=== PATIENT | male | born 1975 | race Caucasian/White ===

== ENCOUNTER 2016-07-03 11:32 | Day surgery (SDC) | payer BC ==
[2016-06-26 08:33] LABS: BASOPHILS 0.4 %; BASOPHILS ABSOLUTE 0.03 10/3/uL (0.0-0.16); EOSINOPHILS 3.5 %; EOSINOPHILS ABSOLUTE 0.24 10/3/uL (0.0-0.53); HEMATOCRIT 46.3 % (40.0-51.0); HEMOGLOBIN 15.6 g/dL (13.6-17.8); IMMATURE GRANULOCYTES 0.1 %; IMMATURE GRANULOCYTES ABSOLUTE 0.01 10/3/uL (0.0-0.11); LYMPHOCYTES 20.3 %; LYMPHOCYTES ABSOLUTE 1.38 10/3/uL (0.67-4.30); MEAN CORPUS HGB CONC 33.7 g/dL (32.0-36.0); MEAN CORPUSCULAR HEMOGLOB 31.3 pg (26.0-34.0); MEAN CORPUSCULAR VOLUME 92.8 fL (80-100); MEAN PLATELET VOLUME 9.9 fL (9.2-13.0); MONOCYTES ABSOLUTE 0.41 10/3/uL (0.21-1.20); NEUTROPHILS 69.7 %; NEUTROPHILS ABSOLUTE 4.74 10/3/uL (2.02-8.40); PLATELET COUNT 206 10/3/uL (150-400); RBC DISTRIBUTION WIDTH 12.5 % (12.0-16.0); RED CELL COUNT 4.99 10/6/uL (4.7-6.1); WHITE BLOOD CELLS 6.8 10/3/uL (4.5-10.5)
[2016-06-26 08:34] LABS: MANUAL DIFF NO %
[2016-06-26 08:51] LABS: ALBUMIN 4.2 G/DL (3.5-5.0); ALKALINE PHOSPHATASE 77 U/L (45-117); CALCIUM, SERUM 9.1 MG/DL (8.5-10.4); CHLORIDE, SERUM 107 MMOL/L (96-112); CO2 (CARBON DIOXIDE) 30 MMOL/L (24-34); CREATININE 1.33 MG/DL (0.70-1.30); DIRECT BILIRUBIN 0.2 MG/DL (0.0-0.4); GFR AFRICAN AMERICAN 75 ML/MIN (>=60); GFR NON AFRICAN AMERICAN 65 ML/MIN (>=60); GLUCOSE, SERUM 95 MG/DL (60-99); INDIRECT BILIRUBIN(NOT ORDER) 0.3 MG/DL (0.1-0.9); POTASSIUM, SERUM 4.1 MMOL/L (3.5-5.3); SGOT(AST) 15 U/L (5-40); SGPT(ALT) 23 U/L (5-65); SODIUM, SERUM 144 MMOL/L (135-148); TOTAL PROTEIN 7.1 G/DL (6.0-8.5)
[2016-06-26 08:52] LABS: ASCORBIC ACID (UR NOT ORDER) NEG (NEG); BILIRUBIN, URINE NEGATIVE (NEG); BUN (BLOOD UREA NITROGEN) 21 MG/DL (6-23); KETONE, URINE NEGATIVE (NEG); LEUKOCYTE ESTERASE(NOT OR TRACE (NEG); TOTAL BILIRUBIN 0.5 MG/DL (0-1.2); WBC (NOT ORDERED) (RFLEX) 10 (0-5)
--- NOTE | ~2016-07-03 | OP ---
Record Of Operation [facility] [address] [place]. [address] NAME: MIKE HAYES : 71 STATUS : [facility]#: [id number] AGE: 41 ADM/REG DATE : 07/03/16 MR#: [id number] REPORT SERV DATE: 07/03/16 DICTATED BY: SHAUNA BROWNING DATE: 07/03/16 REPORT STATUS : Draft TRANSCRIBED BY: MODIke DATE: 07/03/16 DATE OF PROCEDURE: 07/03/2016 PREOPERATIVE DIAGNOSES: Multiple left renal stones, significant left renal cystic disease, left ureteral strictures, Jg-Wiedemann syndrome. POSTOPERATIVE DIAGNOSES: Multiple left renal stones, significant left renal cystic disease, left ureteral strictures, Jg-Wiedemann syndrome. PROCEDURES: Cystoscopy, left retrograde pyelogram, balloon dilation of multiple left ureteral strictures, placement of left ureteral stent, and placement of Jordan catheter. SURGEON: Shauna Browning M.D. ANESTHESIA: General. SPECIMENS: None. ESTIMATED BLOOD LOSS: Less than 20 mL. COMPLICATIONS: None. DRAINS: A 6 variable length Contour double-J ureteral stent without a string located in the left ureter and a 22-Emirati Jordan catheter to bag drainage. DISPOSITION: Extubated to recovery room in good condition. HISTORY: This is a 41-year-old gentleman who has bilateral significant renal cystic disease, bilateral kidney stones, and bilateral ureteral strictures. He also was born with Jg- Wiedemann syndrome. We have treated his right ureteral strictures and right stone disease. He presents today for treatment of his left side. He understands there is a risk that we will be unable to bypass his ureteral strictures today to gain access to his kidney and his stones. In that case, we will have to place a stent and allow his ureter to self-dilate over the stent for three weeks and return at a later date for ureteroscopy and laser treatment of his kidney stones. This is what we had to do on his right side. He has stated understanding. PROCEDURE IN DETAIL: After consent was obtained, the patient was taken to the operating room and placed on the operative table in the supine position. General anesthetic was induced. The patient was then placed in the dorsal lithotomy position. His perineum was prepped and draped in the usual sterile fashion. Examination under anesthesia revealed normal external genitalia. Cystourethroscopy was performed with a 30-degree lens. Both ureteral orifices were seen to clear efflux bilaterally. There was no evidence of any tumor stones or foreign body seen. [employer] film on the table shows small calcifications in the region of the left upper quadrant. He also has what appears to be phleboliths in the pelvis. A left retrograde pyelogram was performed with the open-ended stent. This showed four separate Record Of Operation [address] [place]. [address] NAME: MIKE HAYES : 71 STATUS : [facility] PAT#: [id number] AGE: 41 ADM/REG DATE : 07/03/16 MR#: [id number] REPORT SERV DATE: 07/03/16 DICTATED BY: SHAUNA BROWNING DATE: 07/03/16 REPORT STATUS : Draft TRANSCRIBED BY: ALTAF DATE: 07/03/16 tight, narrow ureteral strictures in his distal ureter. Two of them in the middle portion are very close together. There was mild hydronephrosis above the strictures. The highest stricture was just at the entrance to the true pelvis. The lowest stricture was just inside the ureteral orifice. The 15-Emirati 10 cm balloon was passed over the wire, and though it was snug, we were able to pass it up the wire until the end was just exiting the ureteral orifice. The balloon was then inflated to 15. Under fluoroscopy, we could easily see two waists in the balloon. We held the balloon at 15 for 5 minutes on the clock. There was no change in the strictures. The balloon was then let down and removed. We removed that balloon and passed the 18-Emirati 4 cm balloon. We straddled the first and most distal stricture. The balloon was inflated to 18. Pressure was held for 3 minutes. The stricture did not change. We let the balloon down and advanced it to the area of the second stricture. Now, only one stricture was noted in this area. The balloon was inflated to 18. Pressure was held here for 5 minutes. The stricture did not change. We then advanced the balloon into the area of the third stricture. When the balloon inflated to 12, I felt a pop. Fluoroscopy was engaged and at that time, we could see that the balloon inflated easily to 18 and there was no stricture in the area. The balloon was deflated and we pulled the balloon back to the second or middle stricture and once again, inflated the balloon, this time to 19 and held the balloon at 19 for 3 minutes by the clock. The stricture did not appreciably change under fluoroscopy. We let the balloon down and pulled the balloon back to the area of the first stricture. The balloon was inflated to 19 and held for 3 minutes. No appreciable change of the stricture was noted on fluoroscopy. The balloon was deflated and removed. At that time, it was decided to pass the stent and allow the patient's ureter to self dilate over the stent and return at a later date to attempt ureteroscopy. The above-stated stent was passed over the wire with a good curl seen in the renal pelvis and in the bladder. It was seen to be draining at the end of the case. Because of so much manipulation near the bladder neck and the patient's bladder neck was quite high, there was some oozing at the bladder neck. A 22-Emirati Jordan catheter was passed into the bladder and 15 mL was placed in the balloon. This was seated at the bladder neck. After initial drainage, the resulting drainage was clear. This catheter will be removed in phase 2. The patient was awakened from his anesthetic, extubated, and taken to recovery room in good condition. The plan will be to send him home today on Phenergan, oxybutynin, Percocet 10, #30, Pyridium, Levaquin #2 to start tomorrow. We are to return in three weeks to attempt ureteroscopy and laser ablation of his left renal stones. I have discussed this with his over the phone and she has stated understanding. JASON/ALTAF Shauna Browning M.D. / [id number] CC: Record Of Operation [address] [address] NAME: MIKE HAYES : 71 STATUS : [facility]#: [id number] AGE: 41 ADM/REG DATE : 07/03/16 MR#: [id number] REPORT SERV DATE: 07/03/16 DICTATED BY: SHAUNA BROWNING DATE: 07/03/16 REPORT STATUS : Draft TRANSCRIBED BY: MODL DATE: 07/03/16 aCrl Escobar CHELSEY
[~2016-07-03 11:32] MED LIST: CEFT5 PO; PERCOCET1 TA4 PO; PYR200 PO; T PO; ZANTAC150 MG PO
== END 2016-07-03 17:46 | disposition home or self-care (01) ==
LOC: SDC 11:32
PROVIDERS: Urology
PROC: BT1FYZZ Fluoroscopy of Left Kidney, Ureter and Bladder using Other Contrast (ICD-10-PCS; principal; 2016-07-03 12:45)
DX: N13.2 Hydronephrosis with renal and ureteral calculous obstruction (principal); N13.1 Hydronephrosis with ureteral stricture, not elsewhere classified; Q87.3 Congenital malformation syndromes involving early overgrowth; Z88.1 Allergy status to other antibiotic agents
CPT/HCPCS: 74420; 80048; 80076; 81001; 85025; A9270-GY; C1726; C1758; C1769; C2617; J2250; J2270; J2405; J2710; J3010; Q9967

== ENCOUNTER 2016-07-31 11:35 | Day surgery (SDC) | payer BC ==
[2016-07-27 13:16] LABS: BASOPHILS 0.4 %; BASOPHILS ABSOLUTE 0.02 10/3/uL (0.0-0.16); EOSINOPHILS 11.8 %; EOSINOPHILS ABSOLUTE 0.57 10/3/uL (0.0-0.53); HEMATOCRIT 41.5 % (40.0-51.0); IMMATURE GRANULOCYTES 0.2 %; IMMATURE GRANULOCYTES ABSOLUTE 0.01 10/3/uL (0.0-0.11); LYMPHOCYTES 26.5 %; LYMPHOCYTES ABSOLUTE 1.28 10/3/uL (0.67-4.30); MANUAL DIFF NO %; MEAN CORPUS HGB CONC 33.7 g/dL (32.0-36.0); MEAN CORPUSCULAR VOLUME 91.8 fL (80-100); MEAN PLATELET VOLUME 9.5 fL (9.2-13.0); MONOCYTES 5.4 %; MONOCYTES ABSOLUTE 0.26 10/3/uL (0.21-1.20); NEUTROPHILS 55.7 %; NEUTROPHILS ABSOLUTE 2.69 10/3/uL (2.02-8.40); PLATELET COUNT 193 10/3/uL (150-400); RBC DISTRIBUTION WIDTH 12.4 % (12.0-16.0); RED CELL COUNT 4.52 10/6/uL (4.7-6.1); WHITE BLOOD CELLS 4.8 10/3/uL (4.5-10.5)
[2016-07-27 13:29] LABS: BUN (BLOOD UREA NITROGEN) 14 MG/DL (6-23); CALCIUM, SERUM 8.5 MG/DL (8.5-10.4); CHLORIDE, SERUM 106 MMOL/L (96-112); CO2 (CARBON DIOXIDE) 31 MMOL/L (24-34); CREATININE 1.36 MG/DL (0.70-1.30); GFR AFRICAN AMERICAN 73 ML/MIN (>=60); GFR NON AFRICAN AMERICAN 63 ML/MIN (>=60); GLUCOSE, SERUM 90 MG/DL (60-99); POTASSIUM, SERUM 3.8 MMOL/L (3.5-5.3); SODIUM, SERUM 144 MMOL/L (135-148)
[2016-07-27 13:43] LABS: ASCORBIC ACID (UR NOT ORDER) NEG (NEG); BILIRUBIN, URINE NEGATIVE (NEG); KETONE, URINE NEGATIVE (NEG); LEUKOCYTE ESTERASE(NOT OR NEG (NEG); WBC (NOT ORDERED) (RFLEX) 2 (0-5)
--- NOTE | ~2016-07-31 | OP ---
Record Of Operation [facility] [address] [place]. [address] NAME: MIKE HAYES : 71 STATUS : [facility]#: [id number] AGE: 41 ADM/REG DATE : 07/31/16 MR#: [id number] REPORT SERV DATE: 07/31/16 DICTATED BY: SHAUNA BROWNING DATE: 07/31/16 REPORT STATUS : Draft TRANSCRIBED BY: MODL DATE: 07/31/16 DATE OF PROCEDURE: 07/31/2016 PREOPERATIVE DIAGNOSES: Left ureteral strictures, left renal stones. POSTOPERATIVE DIAGNOSES: Left ureteral strictures, left renal stones. PROCEDURE: Cystoscopy, exchange of left ureteral stent, left retrograde pyelogram, left flexible ureteropyeloscopy, laser ablation of stones, instillation of bladder medications. SURGEON: Shauna Browning M.D. ANESTHESIA: General. SPECIMENS: None. ESTIMATED BLOOD LOSS: None. COMPLICATIONS: None. DRAINS: 6 variable length double-J ureteral stent with a string. DISPOSITION: Extubated to recovery room in good condition. HISTORY: This is a 41-year-old gentleman with the above-stated problems who presents for the above-stated procedure. He has had dilation of three ureteral strictures, two of which were very dense and he has been soft, dilating over a stent for the past three weeks. PROCEDURE IN DETAIL: After consent was obtained, the patient was taken to the operating room and placed on the operative table in a supine position. General anesthetic was induced. The patient was then placed in dorsal lithotomy position. His perineum was prepped and draped in the usual sterile fashion. Examination under anesthesia reveals normal external genitalia. Cystourethroscopy was performed with a 30-degree lens. The patient's bladder was drained of Pyridium stained urine. His left ureteral stent was grasped and pulled to the urethral meatus. A wire was passed up the stent into the region of the kidney under fluoroscopic guidance. The wire was backed through the cystoscope and the open-ended ureteral stent was passed over the wire into the kidney. The wire was removed and retrograde pyelogram was performed. This showed dilation of the upper pole calyces. The wire was replaced. The bladder was drained and the scope and sheath were removed. A Brian catheter was used to pass a second wire into the kidney. Safety wire was clamped to the drapes. We then attempted to pass the 14-Burkinan 36 cm ureteral access sheath. We were unable to get this to pass over the vessels. We passed just the inner core and we were still unable to get this to pass over the vessels. We removed this and exchanged it for the 9.5-Burkinan sheath. We were able to pass this all the way up to the proximal ureter. The inner core was removed and the flexible ureteroscope was passed over the working wire into the upper pole calyx. A retrograde pyelogram was performed and all calyces were evaluated. Record Of Operation [facility] [address] [facility] [place]. [address] NAME: MIKE HAYES : 71 STATUS : [facility]#: [id number] AGE: 41 ADM/REG DATE : 07/31/16 MR#: [id number] REPORT SERV DATE: 07/31/16 DICTATED BY: SHAUNA BROWNING DATE: 07/31/16 REPORT STATUS : Draft TRANSCRIBED BY: ALTAF DATE: 07/31/16 He had no free-floating stones, but he did have several Oskar's plaques and small stones on the tips of calyces. Laser was used and these were treated in their entirety. Since this was a 9.5-Burkinan sheath only, we had to keep stopping the procedure and removing the extra fluid by hand through an empty syringe. This did slow down the case. His polycystic kidney disease did distort the calyces, which made the pyeloscopy challenging. After we were finished with the laser, it was placed on standby and we re-evaluated all calyces. No significant stone fragments were noted. Retrograde pyelogram was then again performed other than the distortion from the cyst, no other abnormalities were noted. We then backed down the ureter and found an open ureter without any other abnormalities. Wire was backed through the cystoscope and the 6 variable-length double-J Contour stent was passed with a good curl seen in the renal pelvis and in the bladder. It was seen to be draining Pyridium stained fluid at the end of the case. A string was left on the stent exiting the patient's urethra. The bladder was drained. 20 mL of 1% lidocaine plain were passed into the bladder, and the scope and sheath were removed. The string was secured to the patient's penis using Mastisol and Tegaderm. He was awakened from his anesthetic, extubated, and taken to recovery room in good condition. Plan will be to send him home today with Levaquin #5, Phenergan, Percocet 10, #30. He may remove his stent on Saturday. He may follow up in six to eight weeks with a KUB. JASON/ALTAF Shauna Browning M.D. / [id number] CC: Carl Escobar Chelsey
== END 2016-07-31 18:43 | disposition home or self-care (01) ==
LOC: SDC 11:35
PROVIDERS: Urology
PROC: BT1DZZZ Fluoroscopy of Right Kidney, Ureter and Bladder (ICD-10-PCS; principal; 2016-07-31 12:45)
DX: N20.0 Calculus of kidney (principal); N13.5 Crossing vessel and stricture of ureter without hydronephrosis; Z88.1 Allergy status to other antibiotic agents; Z98.890 Other specified postprocedural states; Q87.3 Congenital malformation syndromes involving early overgrowth; M41.9 Scoliosis, unspecified; K21.9 Gastro-esophageal reflux disease without esophagitis; N28.1 Cyst of kidney, acquired
CPT/HCPCS: 74420; 80048; 81001; 85025; A9270-GY; C1758; C1769; C1892; C1894; C2617; J1170; Q9967